=== PATIENT | male | born 1965 | race Caucasian/White ===

== ENCOUNTER 2016-06-03 09:31 | Inpatient (IN) ==
[2016-06-03] MEDS ORDERED: NS 1,000 ML IV ONE ×2 (09:58→10:22)
[2016-06-03] MEDS ORDERED: ZOFRAN IV ONE (09:59)
[2016-06-03] MEDS ORDERED: HUMULIN R IV ONE ×3 (10:21→17:15)
[2016-06-03 10:56] LABS: BASO% 0.1 % (0.0-0.8); HEMATOCRIT 54.6 % (42.0-52.0); HEMOGLOBIN 18.7 g/dL (14.0-18.0); IMM GRAN# 0.04 X1000 (0.0-0.04); IMM GRAN% 0.3 % (0.0-0.5); LYMPH# 0.34 X1000 (1.2-3.4); LYMPH% 2.7 % (20.5-51.1); MANUAL DIFF NEEDED? YES; MCH 28.9 PG (27-31); MCHC 34.2 g/dL (33-37); MCV 84.5 FL (81-99); MONO# 0.86 X1000 (0.11-0.59); MONO% 6.9 % (1.7-9.3); PLT 225 X1000 (130-400); RBC 6.46 XMIL (4.7-6.1)
[2016-06-03 11:20] LABS: ALBUMIN 4.2 g/dL (3.5-5.0); CALCIUM 8.7 mg/dL (8.8-10.2); MAGNESIUM 1.9 mg/dL (1.5-2.7); POTASSIUM 5.4 mmol/L (3.5-5.1); TOTAL BILIRUBIN 0.46 mg/dL (0.20-1.00); TOTAL PROTEIN 7.8 g/dL (6.3-8.3)
[2016-06-03 11:54] LABS: BANDS 10 % (0-1); LYMPHS 4 % (21-51); MONO 4 % (1-9)
--- NOTE | 2016-06-03 12:04 | PROVIDER DOCUMENTATION ---
This chart was entered by Raul Sherman Scribe, acting as scribe for Raghu Trinh MD. HPI-Abdominal Pain/GI Problem - General Chief Complaint: Nausea/Vomiting Stated Complaint: VOMITING Time Seen by Provider: 06/03/16 09:53 Source: patient Allergies/Adverse Reactions: Patient Allergies Allergy/AdvReac Type Severity Reaction Status Date / Time No Known Allergies Allergy Verified 06/03/16 10:16 Home Medications: Home Medication List Medication Instructions Recorded Confirmed Last Taken Type Aspirin [Aspirin EC] 81 mg PO DAILY 01/29/14 06/03/16 06/02/16 00:00 History Glipizide [Glipizide ER] 10 mg PO BID 01/29/14 06/03/16 06/02/16 00:00 History Lisinopril 10 mg PO DAILY 01/29/14 06/03/16 06/02/16 00:00 History Metformin HCl [Metformin HCl ER] 1,000 mg PO BID 01/29/14 06/03/16 06/02/16 00: 00 History Metoprolol Tartrate 50 mg PO BID 01/29/14 06/03/16 06/02/16 00:00 History Nitroglycerin [Nitrostat] 0.4 mg SL PRN PRN 01/29/14 06/03/16 Unknown History SIMVAstatin [Zocor] 20 mg PO QHS 01/29/14 06/03/16 06/02/16 00:00 History - History of Present Illness-ABD Nature of Presenting Problems: Patient is a 51 y/o M that presents to the ER with nausea/vomiting and right flank pain x 24 hours. denies diarrhea, dizziness, fever/chills, or cough. patient is a diabetic and history of DKA in past. Reports a blood sugar of 410 this am. He did take his medications around midnight. He does have a history kidney stones in the past. Abdominal Pain Onset Location: reports: flank (right) Pain Radiation: reports: no radiation Quality of Pain: reports: sharp Severity in ED: reports: moderate Onset/Duration: reports: abrupt, 24 hours ago Timing: reports: still present, constant Activities at Onset: reports: none Modifying Factors: improves with: nothing Associated Symptoms: reports: back/neck pain, loss of appetite, nausea, vomiting . denies: chest pain, diaphoresis, diarrhea, dizziness, fever/chills, genitourinary problems, shortness of breath, weakness Similar Symptoms Previously?: No Recently seen or treated by another doctor?: No Review of Systems - Adult - REVIEW OF SYSTEMS - ADULT Constitutional: denies: chills, fever, fatique Eyes: reports: no symptoms reported Ears, Nose, Mouth & Throat: reports: no symptoms reported Cardiovascular: denies: chest pain, syncope Respiratory: denies: cough, shortness of breath, wheezing Gastrointestinal: reports: nausea, vomiting. denies: hematemesis, diarrhea, rectal bleeding Genitourinary: reports: flank pain (right). denies: dysuria, frequency, hematuria Musculoskeletal: denies: joint pain, joint swelling, muscle aches Integumentary: reports: no symptoms reported Neurological: denies: dizziness/vertigo, loss of balance, numbness Psychiatric: reports: no symptoms reported Endocrine: reports: no symptoms reported Hematologic/Lymphatic: reports: no symptoms reported Allergic/Immunologic: reports: no symptoms reported All Other Systems: Reviewed and Negative Past History - Adult - PAST MEDICAL HISTORY-ADULT Review of Records: reports: Old Records Reviewed, Nursing Assessment Review, Medications Reviewed Cardiovascular: reports: CAD, HTN, hyperlipidemia, MS Genitourinary: reports: kidney stones Endocrine/Immune: reports: Diabetes - PRIOR SURGERIES/PROCEDURES Surgical/Procedure History: reports: cholecystectomy, cardiac stent, other ( stent kidneys) - IMMUNIZATION STATUS Childhood Immunizations: See Nurse Assessment Flu Vaccine: See Nurse Assessment - FAMILY HISTORY Family History: reviewed, not pertinent - SOCIAL HISTORY Smoking: non-smoker Alcohol Use Frequency: occasionally Living Situation: family Physical Exam-General - PHYSICAL EXAM-ADULT Initial Vital Signs Reviewed: Yes - CONSTITUTIONAL General Appearance: alert, mild distress - EYES Eyes: PERRL/EOMI, pink conjunctivae - HEAD, EARS, NOSE, MOUTH & THROAT HENMT: normocephalic/atraumatic, pharynx normal, other (dry oral [place] with yellow tint to tongue) - NECK Neck: full range of motion, normal inspection - RESPIRATORY Respiratory: lungs clear, normal breath sounds, no respiratory distress, no accessory muscle use - CARDIOVASCULAR Cardiovascular: no gallop, no murmur, tachycardia - GASTROINTESTINAL (ABDOMEN) Abdominal Exam: normal bowel sounds, non tender, soft, no organomegaly, no pulsatile mass - MUSCULOSKELETAL Back Exam: no CVA tenderness, no vertebral tenderness Extremity: normal range of motion, normal inspection, no pedal edema - SKIN Integumentary: normal color, warm/dry - NEUROLOGIC Neurologic: grossly normal, no motor/sensory deficits - PSYCHIATRIC Psych/Mental Status: normal mood/affect, normal thought content, normal thought process, oriented x 3 Progress - PLAN OF CARE/RESULTS Progress/Plan/Lab Results: Vital Signs - 8 hr 06/03/16 09:44 Temperature 97.4 F L Pulse Rate 142 H Respiratory Rate 24 Blood Pressure 146/92 O2 Sat by Pulse Oximetry 99 Orders Category Date Time Status Saline Loc DIRECTED Care 06/03/16 09:58 Active NPO Diet 06/03/16 09:58 Active AMYLASE [CHEM] Stat Lab 06/03/16 09:58 Uncollected CBC WITH ELECTRONIC DIFF [HEME] Stat Lab 06/03/16 09:58 Uncollected COMPREHENSIVE METABOLIC PANEL [CHEM] Stat Lab 06/03/16 09:58 Uncollected LIPASE [CHEM] Stat Lab 06/03/16 09:58 Uncollected MAGNESIUM [CHEM] Stat Lab 06/03/16 09:59 Uncollected URINALYSIS W/POSS RFLX CULT [URINALYSIS] Stat Lab 06/03/16 09:58 Uncollected 0.9% Sodium Chloride Inj [Ns] 1,000 ml Med 06/03/16 09:58 Active IV 999 mls/hr 0.9% Sodium Chloride Inj [Ns] 1,000 ml Med 06/03/16 10:22 Ordered IV 999 mls/hr Insulin Human Regular [Humulin R] Med 06/03/16 10:21 Once 10 unit IV NOW ONE Ondansetron [Zofran] Med 06/03/16 09:59 Discontinued 4 mg IV NOW ONE plan of care-labs,meds, fluids Vital Signs Temp Pulse Resp BP Pulse Ox 06/03/16 11:31 133 H 23 132/81 97 06/03/16 10:38 135 H 16 134/88 95 06/03/16 09:44 97.4 F L 142 H 24 146/92 99 No Known Allergies Allergy (Verified 06/03/16 10:16) Aspirin [Aspirin EC] 81 mg PO DAILY 01/29/14 Glipizide [Glipizide ER] 10 mg PO BID 01/29/14 Lisinopril 10 mg PO DAILY 01/29/14 Metformin HCl [Metformin HCl ER] 1,000 mg PO BID 01/29/14 Metoprolol Tartrate 50 mg PO BID 01/29/14 Nitroglycerin [Nitrostat] 0.4 mg SL PRN PRN 01/29/14 SIMVAstatin [Zocor] 20 mg PO QHS 01/29/14 Dietary Diet NPO Start WedJun 03 [id number] Laboratory 06/03/16 06/03/16 10:33 10:33 WBC 12.50 H RBC 6.46 H Hgb 18.7 H Hct 54.6 H MCV 84.5 MCH 28.9 MCHC 34.2 RDW Std Deviation 13.7 Plt Count 225 MPV 13.0 H Immature Gran % (Auto) 0.3 Neut % (Auto) 90.0 H Lymph % (Auto) 2.7 L [place] % (Auto) 6.9 Eos % (Auto) 0.0 Baso % (Auto) 0.1 Immature Gran # (Auto) 0.04 Neut # (Auto) 11.25 H Lymph # (Auto) 0.34 L [place] # (Auto) 0.86 H Eos # (Auto) 0.00 Baso # (Auto) 0.01 Sodium 135 L Potassium 5.4 H Chloride 91 L Carbon Dioxide 14 L Anion Gap 30 BUN 41 H Creatinine 1.4 H Estimated GFR/1.73 m2 53 BUN/Creatinine Ratio 29 Glucose 643 H* Calculated Osmolality 310 Calcium 8.7 L Magnesium 1.9 Total Bilirubin 0.46 AST 17 ALT 30 Alkaline Phosphatase 72 Total Protein 7.8 Albumin 4.2 Globulin 3.6 Albumin/Globulin Ratio 1.2 Amylase 33 Lipase 29 Orders Category Date Time Status Saline Loc DIRECTED Care 06/03/16 09:58 Active NPO Diet 06/03/16 09:58 Active AMYLASE [CHEM] Stat Lab 06/03/16 10:33 Completed CBC WITH ELECTRONIC DIFF [HEME] Stat Lab 06/03/16 10:33 Results COMPREHENSIVE METABOLIC PANEL [CHEM] Stat Lab 06/03/16 10:33 Completed LIPASE [CHEM] Stat Lab 06/03/16 10:33 Completed MAGNESIUM [CHEM] Stat Lab 06/03/16 10:33 Completed URINALYSIS W/POSS RFLX CULT [URINALYSIS] Stat Lab 06/03/16 09:58 Uncollected 0.9% Sodium Chloride Inj [Ns] 1,000 ml Med 06/03/16 09:58 Discontinued IV 999 mls/hr 0.9% Sodium Chloride Inj [Ns] 1,000 ml Med 06/03/16 10:22 Discontinued IV 999 mls/hr Insulin Human Regular [Humulin R] Med 06/03/16 10:21 Discontinued 10 unit IV NOW ONE Ondansetron [Zofran] Med 06/03/16 09:59 Discontinued 4 mg IV NOW ONE Result Diagrams: 06/03/16 10:33 06/03/16 10:33 - CONSULTS/PCP/HOSPITALIST Notification #1 *Consult/PCP/Hospitalist*: (pcp) Time Discussed: 11:41 Reason/Comments: DKA Consult Disposition: Will see in ED, Admit Departure - Departure Time of Disposition Decision: 11:41 DIAGNOSIS: DKA (diabetic ketoacidoses) Qualifiers: Diabetes mellitus type: type 2 Diabetes mellitus complication detail: without coma Qualified Code(s): E13.10 - Other specified diabetes mellitus with ketoacidosis without coma Disposition: ADMITTED INPATIENT 09 Certified Medical Emergency: Emergent Condition: Stable Referrals and Follow-Ups: Lanre Bee MD [Primary Care Provider] - - Critical Care Note Total Time (mins): 45 Critical Care Statement: This patient required my direct personal management to treat or rule out processes, the absence of which, could potentiallly result in sudden, clinically significant life or limb threatening deterioration. This chart was documented by the indicated scribe, (Raul Sherman, Scribe) and accurately reflects the services I performed and decisions made by me, Raghu Trinh MD, as attested by the provider's signature.
--- NOTE | 2016-06-03 12:54 | HISTORY AND PHYSICAL ---
IDENTIFYING DATA: This is a 51-year-old. PAST MEDICAL AND SURGICAL HISTORY: Includes in 2010, he had a heart attack and a single stent placed, I think, in [place]. He has not had any trouble, cardiac trouble since then. He has underlying diabetes mellitus type 2, for which he has not needed insulin, and he has a history of hypercholesterolemia and has also had his gallbladder taken out, and really that is really everything with his past medical history. ALLERGIES: No known drug allergies. FAMILY HISTORY: His brother has diabetes and heart disease. I think his brother had bypass. SOCIAL HISTORY: Rare alcohol. No tobacco. No recreational drugs. REVIEW OF SYSTEMS: General: No weight gain or loss. No fever or chills. HEENT: Unremarkable. Respiratory: No increased work of breathing or dyspnea. Cardiovascular: No chest pain or tachy palpitations. Gastrointestinal/Genitourinary: He started having some nausea, really started yesterday. Some general malaise for a couple days. Hematologic/Immunologic: No significant history. HISTORY OF PRESENT ILLNESS: He presents, he says he has kind of felt a little tired and weak for last week, but really started having intense nausea and abdominal cramping yesterday and threw up several times. He presented with acidosis consistent with diabetic ketoacidosis. MEDICATIONS: He is on the following medications: Aspirin 81 mg a day, glipizide 10 mg b.i.d., lisinopril 10 mg a day, metformin 1000 mg b.i.d., metoprolol 50 mg b.i.d., Zocor 20 mg every night at bedtime. PHYSICAL EXAMINATION: GENERAL: Well developed, well nourished. Awake, alert, oriented, pleasant, oriented x3. VITAL SIGNS: Temperature 97.4 degrees, pulse 133, respirations 23, blood pressure 132/81, and O2 saturation was 97%. WEIGHT AND HEIGHT: His weight is 214 pounds and height 5 feet 11 inches. DIAGNOSTIC DATA: Blood sugar was 449; it was actually originally 643 when he presented to the emergency room. White blood cell count 12,500, hematocrit was 54, platelet count 225,000. Sodium 135, potassium 5.4, chloride 91, bicarbonate 14, BUN 41, creatinine 1.4, and anion gap is 30. Blood sugar 643, calcium 8.7, magnesium 1.9, albumin 4.2, amylase 33, lipase 29. ASSESSMENT AND PLAN: 1. Diabetic ketoacidosis. His bicarbonate is 14 with an anion gap of 30. I am going to give him some fluids and some insulin and start him on a split-dose insulin. He will need to have insulin at home. We will run normal saline at 150 mL an hour, and we will give him an insulin drip and then convert him to a sliding scale. 2. History of coronary artery disease, aware. 3. History of hypercholesterolemia. cc: Lnare Bee MD
[2016-06-03 13:16] LABS: URINE SOURCE CLEAN CATCH
[2016-06-03 13:27] LABS: BILIRUBIN URINE SMALL (NEGATIVE); BLOOD URINE NEGATIVE (NEGATIVE); CLARITY CLEAR (CLEAR); COLOR YELLOW; GLUCOSE URINE >=1000 mg/dL (NEGATIVE); LEUKOCYTES URINE NEGATIVE (NEGATIVE); NITRITE URINE NEGATIVE (NEGATIVE); PH URINE 5.5; PROTEIN URINE NEGATIVE (NEGATIVE); SP GRAVITY URINE 1.015; UROBILINOGEN URINE 0.2 EU/dL (0.2-1.0)
[2016-06-03 13:51] LABS: URINE CAST NONE SEEN /LPF; URINE CRYSTAL NONE SEEN /HPF; URINE CULTURE NEEDED? NO; URINE EPITHELIAL CELLS <10 /HPF (<10); URINE RBC <10 /HPF (<10); URINE WBC <10 /HPF (<10)
[2016-06-03] MEDS ORDERED: ZOFRAN IV PRN (14:14)
[2016-06-03] MEDS ORDERED: NITROGLYCERIN SL PRN (14:14)
[2016-06-03] MEDS ORDERED: NS 1,000 ML IV SCH (14:14)
[2016-06-03 17:01] LABS: AGAP 23; BUN 33 mg/dL (8-22); CALCIUM 7.7 mg/dL (8.8-10.2); CHLORIDE 100 mmol/L (98-107); COSMO 302; POTASSIUM 4.5 mmol/L (3.5-5.1); SODIUM 138 mmol/L (136-145); TCO2 15 mmol/L (25-35)
[2016-06-03] MEDS ORDERED: D50W SYRINGE IV PRN (17:15)
[2016-06-03] MEDS ORDERED: HUMULIN R 100 UNIT in NS 99 ML IV SCH (17:15)
[2016-06-03] MEDS ORDERED: MAGNESIUM SULFATE 2 GM/S.W.I. 2 GM/50 ML IVPB IV PRN (17:15)
[2016-06-03] MEDS: D5 NS + KCL 20 MEQ 1,000 ML IV SCH (17:57)
[2016-06-03] MEDS ORDERED: NS + KCL 40 MEQ 1,000 ML IV SCH (18:00)
[2016-06-03] MEDS: LOPRESSOR PO SCH (20:27)
[2016-06-03] MEDS ORDERED: ZOCOR PO SCH (21:00)
[2016-06-03 21:10] LABS: MAGNESIUM 1.7 mg/dL (1.5-2.7)
[2016-06-03 21:28] LABS: AGAP 20; BUN 26 mg/dL (8-22); CALCIUM 7.7 mg/dL (8.8-10.2); CHLORIDE 102 mmol/L (98-107); COSMO 295; POTASSIUM 3.7 mmol/L (3.5-5.1); SODIUM 141 mmol/L (136-145); TCO2 19 mmol/L (25-35)
[2016-06-03] MEDS: TYLENOL PO PRN (23:10)
[2016-06-04] MEDS: D5 NS + KCL 20 MEQ 1,000 ML IV SCH (00:28)
[2016-06-04 02:47] LABS: MAGNESIUM 1.6 mg/dL (1.5-2.7)
[2016-06-04 02:49] LABS: AGAP 13; BUN 25 mg/dL (8-22); CALCIUM 7.2 mg/dL (8.8-10.2); CHLORIDE 102 mmol/L (98-107); COSMO 282; POTASSIUM 3.6 mmol/L (3.5-5.1); SODIUM 136 mmol/L (136-145); TCO2 21 mmol/L (25-35)
[2016-06-04 05:44] LABS: AGAP 14; ALBUMIN 3.2 g/dL (3.5-5.0); ALKALINE PHOSPHATASE 47 U/L (32-122); BUN 24 mg/dL (8-22); CALCIUM 7.3 mg/dL (8.8-10.2); CHLORIDE 102 mmol/L (98-107); CK PROFILE 51 U/L (24-204); COSMO 283; GOT 15 U/L (10-34); GPT 21 U/L (10-44); MAGNESIUM 2.2 mg/dL (1.5-2.7); POTASSIUM 3.3 mmol/L (3.5-5.1); SODIUM 137 mmol/L (136-145); TCO2 21 mmol/L (25-35); TOTAL BILIRUBIN 0.39 mg/dL (0.20-1.00); TOTAL PROTEIN 5.6 g/dL (6.3-8.3)
[2016-06-04 05:50] LABS: MANUAL DIFF NEEDED? NO
[2016-06-04 06:24] LABS: EOS# 0.01 X1000 (0.0-0.7); EOS% 0.1 % (0.0-10.0); HEMATOCRIT 41.9 % (42.0-52.0); HEMOGLOBIN 14.4 g/dL (14.0-18.0); IMM GRAN# 0.02 X1000 (0.0-0.04); IMM GRAN% 0.2 % (0.0-0.5); LYMPH% 9.4 % (20.5-51.1); MCH 29.5 PG (27-31); MCHC 34.4 g/dL (33-37); MCV 85.9 FL (81-99); MONO# 1.31 X1000 (0.11-0.59); MONO% 15.4 % (1.7-9.3); NEUT% 74.9 % (42.2-75.2); PLT 167 X1000 (130-400); RBC 4.88 XMIL (4.7-6.1)
[2016-06-04 06:33] LABS: AGAP 13; BUN 22 mg/dL (8-22); CALCIUM 7.2 mg/dL (8.8-10.2); CHLORIDE 102 mmol/L (98-107); COSMO 279; POTASSIUM 3.4 mmol/L (3.5-5.1); SODIUM 136 mmol/L (136-145); TCO2 21 mmol/L (25-35)
[2016-06-04] MEDS: LOPRESSOR PO SCH (08:40)
[2016-06-04] MEDS ORDERED: D5 NS + KCL 20 MEQ 1,000 ML IV SCH (08:59)
[2016-06-04] MEDS ORDERED: PRILOSEC PO SCH (09:00)
[2016-06-04] MEDS ORDERED: PRINIVIL PO SCH (09:00)
[2016-06-04] MEDS ORDERED: ASPIRIN EC PO SCH (09:00)
--- NOTE | 2016-06-04 09:19 | PROGRESS NOTE ---
DATE: 06/04/2016 SUBJECTIVE: Mr. Loomis did not sleep much last night, but he does feel better. No nausea. He is eating well and keeping food down. OBJECTIVE: Vital signs: Temperature 97.5 degrees and afebrile, pulse 117, respirations 22, blood pressure 149/82. HEENT: Pupils are equal and round. Lungs: Clear in all lung [place]. Cardiovascular exam: Regular rhythm and rate without murmur or S3. : Urine output was over 5 L output yesterday. Blood pressures look good. LAB: White count 8530, hematocrit 41, platelet count 167,000. Sodium 136, potassium 3.4, chloride 102, bicarbonate 21, BUN 22, creatinine 0.7. Blood sugars 184,161, 164. Phosphorus is 1.7. Magnesium was 2.2. ASSESSMENT AND PLAN: 1. Diabetic ketoacidosis. Sugars have come down nicely. He is on sliding scale. We will put him on a split dose of insulin. Will use Humulin 70/30; I think I will try 8 units in the morning, 8 units in the evening. Will let him have a little bit of Restoril for sleep if he needs it tonight and see how we do. If the sugars are controlled and feels good, he can probably go home tomorrow. Review of his orders: I do not see any other changes at this point. cc: Lanre Bee MD
[2016-06-04] MEDS: TYLENOL PO PRN (10:18)
[2016-06-04 10:44] LABS: AGAP 15; BUN 20 mg/dL (8-22); CALCIUM 7.5 mg/dL (8.8-10.2); CHLORIDE 100 mmol/L (98-107); COSMO 284; SODIUM 135 mmol/L (136-145); TCO2 20 mmol/L (25-35)
[2016-06-04] MEDS ORDERED: INSULIN PEN NEEDLES ONE (10:47)
[2016-06-04] MEDS: HUMULIN R SUBQ SCH ×2 (10:58→17:50)
--- NOTE | 2016-06-04 11:37 | Carotid Study ---
DATE: 06/03/2016 PROCEDURE: Carotid ultrasound study. REQUESTING PHYSICIAN: Lanre Bee MD INTERPRETING PHYSICIAN: Hector Jordan MD [employer]EN[employer] OFFICE EQUIPMENT ENGINEER: [place] INDICATION: DKA. TECHNIQUE: Bilateral duplex and color flow imaging of the carotid arteries was performed using the Volusionid E9 Ultrasound System with a 9L-D transducer. OBSERVED DATA RIGHT LEFT Brachial Blood Pressure Carotid Pulse Bruits: Carotid/Sub DIAGRAM OF ULTRASOUND IMAGING R L RIGHT INT EXT INT EXT LEFT Juan (cm/s) Juan (cm/s) Subclavian 80/0 Subclavian 114/0 CCA Proximal 51/9 CCA Proximal 94/15 CCA Distal 56/11 CCA Distal 63/20 Bulb 70/14 Bulb 67/19 ICA Proximal 54/19 ICA Proximal 43/13 ICA Mid 82/26 ICA Mid 67/21 ICA Distal 52/16 ICA Distal 66/21 ECA 164/23 ECA 111/19 Vertebral 51/13 Vertebral 60/11 ICA/CCA Ratio 1.47 ICA/CCA Ratio 0.72 % Stenosis 0%-39% % Stenosis 0%-39% FINDINGS: Minimal atherosclerosis noted to bilateral carotid arteries. At this time it does not produce a hemodynamically significant flow-limiting stenosis. Both vertebral arteries are antegrade flow. INTERPRETATION: No hemodynamically significant flow limiting stenosis noted to bilateral carotid arteries. Both vertebral arteries are antegrade flow. cc: MD Lanre Piper MD
[2016-06-04 15:59] VITALS: BP 117/67
[2016-06-04] MEDS ORDERED: HUMULIN 70/30 SUBQ SCH (21:00)
--- NOTE | 2016-06-05 14:09 | DISCHARGE SUMMARY ---
ADMISSION DATE: 06/03/2016 DISCHARGE DATE: 06/04/2016 PAST MEDICAL HISTORY: 1. In 2010 had a heart attack. Single stent placed at [facility], has not had any trouble or cardiac trouble since that time. 2. Diabetes mellitus type 2. He has not needed insulin. 3. Hypercholesterolemia. 4. Gallbladder was taken out in the past. ALLERGIES: No known drug allergies. HOSPITAL COURSE: He presented with mild DKA and he was put on the DKA protocol with IV insulin. Sugar was 600 on presentation and he had a bicarb of 14. Potassium was 5.4, sodium was 135. He responded well. Put him on sliding scale, stopped the IV insulin and began a split dose 70/30 Humulin which he tolerated well and is feeling good, no further nausea. His blood sugars came down nicely. I started him on 8 units of 70/30. Actually I think I will discharge him on 12 units 70/30 before breakfast and before lunch. He will on his previous medications, aspirin 81 mg a day, I will put him on the glipizide 10 mg b.i.d., lisinopril 10 mg a day, metformin HCL 1000 mg p.o. b.i.d., metoprolol tartrate 50 mg b.i.d., Zocor 20 mg at bedtime, and I will give him the 70/30 Humulin 8 units before breakfast and before evening, see him in my office in 4 weeks. He is to check sugars, keep a record of them. cc: Lanre Bee MD
== END 2016-06-04 19:20 | disposition home or self-care (01) ==
LOC: ED 09:31 → EDIPHOLD 12:35 → 3S 14:36
PROVIDERS: ADMIT Emergency Medicine; ATTEND Emergency Medicine